=== PATIENT | male | born 1960 | race Caucasian/White ===

== ENCOUNTER 2022-01-06 16:19 | Emergency (ER) | payer SELFPAY ==
[2022-01-06 16:20] VITALS: BP 153/91; PULSE 100; RESP 18; TEMP 36.7; O2SAT 94; BMI 32.1
--- NOTE | 2022-01-06 16:34 | CT_ITS ---
STUDY: CT ABDOMEN AND PELVIS WITH CONTRAST REASON FOR EXAM: Male, 61 years old. Right lower quadrant pain for 3 weeks. Nausea and diarrhea. RADIATION DOSAGE (If Supplied By Facility): CTDIvol = ( 23.68 ) mGy, DLP = ( 1326.25 ) mGycm TECHNIQUE: Transaxial images were obtained from the dome of the diaphragm to the symphysis pubis with oral contrast. IV 100mL Isovue-370 was administered. Sagittal and coronal images were reconstructed. Individualized dose optimization techniques were used for this CT. COMPARISON: None. FINDINGS: The visualized lung bases are unremarkable. The visualized portions of the heart are within normal limits. Mild fatty infiltration of mildly enlarged liver. Well-distended gallbladder without gallstones or inflammatory change. No biliary ductal dilatation. Normal spleen. Normal pancreas. Question small bilateral adrenal adenomas. There is a subcentimeter cyst in the upper right kidney. Normal left kidney. Normal bilateral ureters. Normal visualized stomach. Normal small intestine. Normal colon. The appendix is visualized and appears normal. Normal abdominal aorta. Normal inferior vena cava. Normal retroperitoneum. Normal urinary bladder. Mildly enlarged prostate. No pelvic lymphadenopathy. No free air or free fluid is seen within the peritoneal cavity. Small umbilical hernia of omental fat. Minimal degenerative changes lumbar spine. CT/Abdomen/Pelvis WITH Contrast IMPRESSION: 1. Normal appendix. 2. No evidence of renal, ureteral or urinary bladder abnormality. 3. Mild hepatomegaly with fatty infiltration. 4. Mildly enlarged prostate. Electronically Signed: Carrington Thao DO at 18:44 EDT Reading Location ID and State: [facility] / [place] Tel [phone], Service support ,
--- NOTE | 2022-01-06 16:35 | EDS_ITS ---
HPI HPI - GI History of Present Illness Chief Complaint: Abd Pain Informant: patient and spouse/S.O. Narrative Narrative: Intermittent right lower quadrant pain started 2 weeks ago. A week ago went to urgent care had outpatient work-up. States blood work noted glucose in the 300s. He had elevated blood pressure at the facility. He had an outpatient CT scan reporting large appendix however there is no inflammatory findings. He has been fine since then was told if symptoms recurs or worsen to come back to the ED. He states pain started again yesterday evening he was at a sleep pain progressed throughout the day. No fevers. No nausea or vomiting. No diarrhea. Normal bowel movements. He has not eaten today. No urinary symptoms. He does not have a PCP. He denies any allergies. Denies any polyuria or polydipsia. Prior similar symptoms: Yes PFSH PFSH Allergy/AdvReac Type Severity Reaction Status Date / Time No Known Allergies Allergy Verified 01/06/22 16:19 Social History Smoking Status: Current every day smoker tobacco type: cigarettes ROS ROS ED Constitutional Constitutional ED: Denies chills, fever(s) or sweats Eyes Eyes: Denies change in vision ENT ENT ED: Denies dysphagia or sore throat Cardiovascular Cardiovascular: Denies chest pain, leg edema, palpitations or racing heartbeat Respiratory/Chest Respiratory/Chest: Denies cough, dyspnea or dyspnea on exertion Gastrointestinal Gastrointestinal: Reports abdominal pain; Denies diarrhea, nausea or vomiting Genitourinary Genitourinary ED: Denies dysuria, hematuria or urinary frequency Musculoskeletal Musculoskeletal: Denies back pain, extremity pain or neck pain Integumentary Denies rash or wounds Neurologic Neurologic: Denies headache(s), paresthesias or weakness EXAM Physical Exam Const Vital Signs: 01/06/22 16:20 Temperature 98.0 F Temperature Source Temporal Pulse Rate 100 Respiratory Rate 18 Blood Pressure 153/91 H Blood Pressure Mean 111 Pulse Ox 94 Oxygen Delivery Method Room Air Positive well nourished and well developed General Appearance ED: well developed and NAD HEENT Reports moist mucous membranes normocephalic and atraumatic Eyes PERRL, EOMs intact bilaterally and conjunctivae normal General Eye ED: Yes normal appearance of both eyes Neck no lymphadenopathy and supple General: Negative for tenderness Chest Wall Chest: Negative for tenderness Resp normal respiratory effort and normal air movement Effort and Inspection: symmetric chest movement; Negative for respiratory distress Cardio regular rate, regular rhythm and no murmurs Peripheral Pulses: pulses 2+ throughout GI normal to inspection, nondistended, normoactive bowel sounds GI Narrative: Tender deep palpation right lower quadrant. Negative Aranda's. Negative McBurney's. Negative Rovsing's. No guarding or rebound. Palpation: Negative for guarding or rebound tenderness present Back/Spine no CVA tenderness and no thoracic nor lumbar tenderness Extremity normal to inspection General Extremety ED: Negative for edema or tenderness General Extremity: Negative for edema Neuro oriented x3 and no sensory deficits noted Sensorium / Orientation: awake and alert Skin no rashes or lesions noted and no wounds MDM MDM MDM Narrative Medical decision making narrative: Pain with deep palpation right lower quadrant. Recurrent. Reported borderline appendix outside facility. Reimaging performed with IV and oral contrast. White count returned at 13.2. Creatinine 0.77. CT scan results normal appendix, mild large prostate mild hepatomegaly. Patient reassured on exam. Note glucose was 207. He was told glucose was in 300s last week. Discussed importance of follow-up with her PCP outpatient management and testing. He understands this. He is given follow-up as an outpatient. All questions were answered. Lab Data Attestation: I reviewed the patient's lab results. Labs: Laboratory Results - last 24 hr 01/06/22 01/06/22 16:40 16:40 WBC 13.2 H RBC 5.67 Hgb 18.6 H* Hct 52.6 MCV 92.8 MCH 32.8 H MCHC 35.4 RDW Std Deviation 41.8 RDW Coeff of Cynthia 12.2 Plt Count 314 MPV 9.1 Immature Gran % (Auto) 0.500 Neut % (Auto) 47.9 Lymph % (Auto) 39.2 [place] % (Auto) 7.7 Eos % (Auto) 3.9 Baso % (Auto) 0.8 Absolute Neuts (auto) 6.3 Absolute Lymphs (auto) 5.17 H Nucleated RBC % 0 Differential Comment SEE COMMENT Diff Path Review May foll Platelet Estimate ADEQUATE RBC Morphology N CHROM Anisocytosis RARE Macrocytosis RARE Sodium 138 Potassium 4.0 Chloride 105 Carbon Dioxide 26.0 Anion Gap 7 BUN 11 Creatinine 0.77 Estim Creat Clear Calc 123.46 Est GFR (MDRD) Af Amer 133 Est GFR (MDRD) Non-Af 110 BUN/Creatinine Ratio 14.3 Glucose 207 H Calcium 10.1 Radiography Diagnostic Testing: Clinical Impression(s) from Imaging Studies Abdomen/Pelvis CT 01/06/22 16:34 IMPRESSION: 1. Normal appendix. 2. No evidence of renal, ureteral or urinary bladder abnormality. 3. Mild hepatomegaly with fatty infiltration. 4. Mildly enlarged prostate. Electronically Signed: Carrington Thao DO at 18:44 EDT Reading Location ID and State: [address] [place] [address] Tel [phone], Service support , Discharge Plan Triage Chief Complaint: Abd Pain ED Provider: Danial Springer Dx/Rx/DC Orders Clinical Impression: Abdominal pain, RLQ, Blood glucose elevated Instructions: Abdominal Pain Primary Care Provider: Care Physician,No Primary Referrals: Stephany Mayberry [Non-Staff] - 1-2 Weeks NOT,DEFINED [Non-Staff] - Activity Restrictions/Additional Instructions: CT abdomen pelvis with oral and IV contrast normal appendix.Small questional bilateral adrenal adenomas. Subcentimeter cyst in the right kidney. Glucose 207 the lab. Follow-up as an outpatient for yearly checks of blood tests. Pain abdomen significant worsens fevers return to ED for reevaluation. Disposition Disposition: Home, Self Care Discharge Date/Time: 01/06/22 19:20
[2022-01-06 16:46] LABS: Absolute Lymphocyte Count 5.17 X10^3/uL (0.83-4.51); Absolute Neutrophil Count 6.3 X10^3/uL (2.0-7.7); Basophil% 0.8 % (0-1); Eosinophil# 0.51 X10^3/uL; Eosinophils% 3.9 % (0-5); Hematocrit 52.6 % (40-54); Lymphocyte # 5.17 X10^3/ul (0.83-4.51); Lymphocyte % 39.2 % (19-41); Mean Corp Hgb Conc 35.4 g/dL (32-36); Mean Corpuscular Hgb 32.8 pg (27.0-32.0); Mean Corpuscular Volume 92.8 fL (80-94); Mean Platelet Vol. 9.1 fl (6.2-12.0); Monocyte# 1.01 X10^3/uL; Monocyte% 7.7 % (0-10); NRBC Flagged by Analyzer 0 % (0-5); Neutrophil # 6.32 X10^3/uL (2.7-7.7); Neutrophil % 47.9 % (47-70); POSITIVE DIFFERENTIAL YES; Platelet Count 314 K/mm3 (150-450); RBC Distribution Width CV 12.2 % (11.6-14.6); RBC Distribution Width SD 41.8 fl (35.1-43.9); Red Blood Count 5.67 M/mm3 (4.6-6.2); White Blood Count 13.2 K/mm3 (4.4-11.0)
[2022-01-06 16:59] LABS: Anion Gap 7 (5-15); BUN 11 mg/dL (7-18); BUN/Creat Ratio 14.3 RATIO (10-20); Calcium,Total 10.1 mg/dL (8.5-10.1); Chloride 105 mmol/L (98-107); Creatinine, Serum 0.77 mg/dL (0.70-1.30); EST Glomerular Filtration Rate 110 mL/min (>60); Est Glom Filt Rate - Afr Amer 133 mL/min (>60); Estimated Creatinine Clearance 123.46 ml/min; Glucose 207 mg/dL (74-106); Sodium Level 138 mmol/L (136-145)
[2022-01-06 17:14] LABS: Differential Indicated SCAN CRITERIA MET; Hemoglobin 18.6 g/dL (13.0-16.5)
[2022-01-06 17:16] LABS: Anisocytosis RARE; Macrocytosis RARE; Platelet Estimate ADEQUATE (ADEQ); Red Cell Morphology N CHROM NORMAL (NORM C&C)
[2022-01-06] MEDS: 0.9% Normal Saline 1,000 ML 125 ML IV (17:38)
[2022-01-08 11:47] LABS: Pathologist Review Reviewed
== END 2022-01-06 19:20 | disposition home or self-care (01) ==
PROVIDERS: Emergency Provider Emergency Medicine; Visit Provider Emergency Medicine
DX: R10.31 Right lower quadrant pain (principal); R73.9 Hyperglycemia, unspecified; F17.210 Nicotine dependence, cigarettes, uncomplicated
CPT/HCPCS: 74177; 80048; 85025; 99283; J7030; Q9967